=== PATIENT | female | born 1960 | race Asian ===

== ENCOUNTER 2022-10-08 07:10 | Day surgery (SDC) | payer OTHER ==
[~2022-10-08] VITALS: Ht 160 cm; Wt 62.6 kg
[2022-10-08] MEDS ORDERED: fentaNYL citrate 0.05 MG/ML VIAL ONE ×2 (07:56→07:57)
[2022-10-08] MEDS ORDERED: diphenhydrAMINE 50 MG/ML VIAL ONE (07:56)
[2022-10-08] MEDS ORDERED: LIDOCAINE 2% 100 MG/5 ML UJET TP ONE (07:57)
[2022-10-08] MEDS ORDERED: MIDAZOLAM 5 MG/5 ML VIAL ONE (07:57)
[2022-10-08] MEDS ORDERED: MIDAZOLAM 5 MG/5 ML VIAL IV ONE (12:30)
[2022-10-08] MEDS ORDERED: fentaNYL citrate 0.05 MG/ML VIAL IVP ONE (12:30)
== END 2022-10-08 10:34 | disposition home or self-care (01) ==
LOC: MMU 07:10 → MDS 07:10
PROVIDERS: ATTEND Internal Medicine Gastroenterology
DX: Z12.11 Encounter for screening for malignant neoplasm of colon (principal); D12.2 Benign neoplasm of ascending colon; K57.30 Diverticulosis of large intestine without perforation or abscess without bleeding; I10 Essential (primary) hypertension; E03.9 Hypothyroidism, unspecified; Z79.899 Other long term (current) drug therapy; Z20.822 Contact with and (suspected) exposure to COVID-19
CPT/HCPCS: 45385; 87426; J2250; J3010; 82948; 88305; J1200